=== PATIENT | male | born 1970 | race Caucasian/White ===

== ENCOUNTER 2018-11-02 05:24 | Emergency (ER) | payer MEDICAID ==
[~2018-11-02] VITALS: Ht 177.8 cm; Wt 127.0 kg
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
--- NOTE | 2018-11-02 06:54 | NUR ---
IV LINE OBTAINED ON L AC 18G. BLOOD DRAWN AND GIVEN TO ADJUNCT PROFESSOR OF VOICE TA BEDSIDE. EKG DONE BY EMT
[2018-11-02] MEDS ORDERED: IV NS 0.9% 500 ML BAG IV ONE (07:00)
[2018-11-02] MEDS ORDERED: CT SWABBABLE VALVE TRANS SET 1 EA INFUS.SET MC ONE (07:05)
[2018-11-02] MEDS ORDERED: IV NS 0.9% 250 ML IV ONE (07:05)
[2018-11-02] MEDS ORDERED: IOHEXOL-300 100 ML VIAL IV ONE (07:05)
[2018-11-02 07:09] LABS: BASOPHILS % (AUTO) 0.7 % (0.0-2.0); EOSINOPHILS % (AUTO) 1.5 % (0.0-6.0); HEMATOCRIT 48 % (39-51); HEMOGLOBIN 16.5 g/dL (13.5-17.5); LYMPHOCYTES # (AUTO) 1.7 /CMM (0.8-4.8); LYMPHOCYTES % (AUTO) 24.5 % (20.0-44.0); MEAN CORPUSCULAR HGB CONC 34 g/dl (31.0-36.0); MEAN CORPUSCULAR VOLUME 89 fL (80-96); MONOCYTES # (AUTO) 0.8 /CMM (0.1-1.30); NEUTROPHILS # (AUTO) 4.3 /CMM (1.8-8.9); NEUTROPHILS % (AUTO) 62.3 % (43.0-81.0); PLATELET COUNT (AUTO) 208 /CMM (150-450); RED BLOOD CELL COUNT(AUTO) 5.37 MIL/uL (4.5-6.0); WHITE BLOOD COUNT (AUTO) 6.9 K/uL (4.3-11.0)
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
[2018-11-02 07:15] LABS: CALCIUM, SERUM 8.9 mg/dL (8.5-10.1); CARBON DIOXIDE 24 mmol/L (21-32); CHLORIDE 103 mmol/L (98-107); CREATININE 1.1 mg/dL (0.6-1.3); GLUCOSE 280 mg/dL (74-106); POTASSIUM 3.7 mmol/L (3.5-5.1); SODIUM SERUM 138 mmol/L (136-145); UREA NITROGEN, BLOOD 13 mg/dL (7-18)
[2018-11-02 07:20] LABS: APPEARANCE,URINE SL CLOUDY (CLEAR); BILIRUBIN,URINE NEGATIVE (NEGATIVE); BLOOD, URINE NEGATIVE Ery/uL (NEGATIVE); COLOR,URINE YELLOW (YELLOW); KETONES,URINE NEGATIVE (NEGATIVE); LEUKOCYTE ESTERASE ,URINE NEGATIVE (NEGATIVE); NITRITE, URINE NEGATIVE (NEGATIVE); PROTEIN,URINE TRACE mg/dl (NEGATIVE); UGLUCOSE 2+ mg/dL (NEGATIVE)
[2018-11-02 07:21] LABS: ALANINE AMINOTRANSFERASE 36 U/L (12-78); ALBUMIN 3.7 g/dL (3.4-5.0); ALCOHOL, BLOOD < 3 mg/dL (0-0); ALKALINE PHOSPHATASE 87 U/L (46-116); ASPARTATE AMINOTRANSFERASE 37 U/L (15-37); BILIRUBIN,DIRECT 0.2 mg/dL (0.0-0.2); TOTAL PROTEIN, SERUM 8.2 g/dL (6.4-8.2)
--- NOTE | 2018-11-02 07:26 | NUR ---
PT ENDORSED TO [facility] FOR JOCELYNE.
[2018-11-02 07:38] LABS: BACTERIA,URINE None seen /HPF (None Seen); RBC,URINE 0-2 /HPF (0-2); SQUAMOUS EPITHELIAL CELL,UR Few /HPF (None Seen); WBC,URINE 0-1 /HPF (0-3)
--- NOTE | 2018-11-02 08:24 | NUR ---
[facility] TRANSFER LINE [phone] EMIL ENRIQUEZ CHARGE TRAUMA DOCTOR SAPPHIRE MATHEW
[2018-11-02] MEDS ORDERED: ONDANSETRON HCL/PF 4 MG/2 ML VIAL ONE (08:25)
[2018-11-02] MEDS ORDERED: MORPHINE SULFATE INJ 4 MG/ML DISP.SYRIN ONE (08:25)
--- NOTE | 2018-11-02 08:25 | NUR ---
PATIENT AWAKE ALERT CT DONE PATIENT COMPLAINING OF CHEST PAIN WHEN COUGHING BUT NO NAUSE AND VOMIT @ THIS TIME ,VITALS TAKEN AND FILED ,PATIENT HAS LLQ ABDOMINAL BRUISES ,REFUSED WEAR GOWN CONTINUE TO MONITOR
--- NOTE | 2018-11-02 08:26 | NUR ---
EMIL LOWE [phone] FAX [phone] TONO DEE IS CHANDNI LEARY. FAX FACESHEET.
[2018-11-02] MEDS ORDERED: ONDANSETRON HCL/PF - ER 4 MG/2 ML VIAL IV ONE (08:30)
[2018-11-02] MEDS ORDERED: MORPHINE SULFATE INJ 2 MG/ML DISP.SYRIN IV ONE (08:30)
--- NOTE | 2018-11-02 08:33 | NUR ---
CALLED TRANSPORT [phone] ETA IS 90MINS 1045 TRIP NUMBER: [id number]
[2018-11-02] MEDS ORDERED: IV NS 0.9% 500 ML IV ONE (09:00)
--- NOTE | 2018-11-02 09:03 | NUR ---
CALLED REPORT TO CARL[facility] LOWE [phone] SPOKE TO KOKO Rg RN EDRN .
--- NOTE | 2018-11-02 09:57 | NUR ---
CALLED [facility] LOWE FOR UPDATE KOKO MADE AWARE EMS IS HERE ON THE WAY
--- NOTE | 2018-11-02 09:58 | NUR ---
BELONGINGS GIVEN TO PATIENT
--- NOTE | 2018-11-02 10:05 | NUR ---
Patient Tranfers to outside Facility Physician:ACCEPTED BY DR. LEARY Location:[place]
[2018-11-02 10:08] VITALS: BP 132/67
== END 2018-11-02 18:05 ==
LOC: ER 05:29
DX: S27.892A Contusion of other specified intrathoracic organs, initial encounter (principal); S80.812A Abrasion, left lower leg, initial encounter; S80.811A Abrasion, right lower leg, initial encounter; E11.9 Type 2 diabetes mellitus without complications; R91.8 Other nonspecific abnormal finding of lung field; I10 Essential (primary) hypertension; R51 Headache; V49.49XA Driver injured in collision with other motor vehicles in traffic accident, initial encounter; Y93.89 Activity, other specified; Y92.488 Other paved roadways as the place of occurrence of the external cause; Y99.8 Other external cause status
CPT/HCPCS: 36415; 70450; 71260; 74177; 80048; 80076; 80305; 80307; 81001; 84484; 85025; 85730; 86850; 93005; 96374; 96375; 99291; J2270; J2405 ×2; J3490; J7040; J7050; L0172; Q9967; 81000-TC; G0480